=== PATIENT | male | born 1970 | race Caucasian/White ===

== ENCOUNTER 2020-10-05 18:05 | Emergency (ER) | payer SELFPAY ==
[~2020-10-05] VITALS: Ht 177 cm; Wt 75.0 kg
[~2020-10-05 18:05] MED LIST: LORA10CA PO
[2020-10-05] MEDS ORDERED: LACTATED RINGERS 1,000 ML IV STA (18:52)
[2020-10-05] MEDS ORDERED: ONDANSETRON 4 MG/2 ML (SDV) Z0FRAN IVP ONE (19:00)
[2020-10-05] MEDS ORDERED: ACETAMINOPHEN 500 MG TAB (TYLENOL) PO ONE (19:00)
[2020-10-05] MEDS ORDERED: LACTATED RINGERS 1,000 ML IV ONE (19:00)
--- NOTE | 2020-10-05 19:00 | ED Cough/URI ---
General Chief Complaint: Cough/Cold/Flu Symptoms Stated Complaint: DIARRHEA,N/V,CALDERON,FEVER,COUGH,SOB Nursing Triage Note: PT PRESENTS TO ED C/O EIGHT DAYS OF COUGH, NVD, FATIGUE AND FEVER. PT STATES SEVERAL CLOSE FRIENDS HAVE TESTED POSITIVE FOR COVID Source: patient Exam Limitations: no limitations History of Present Illness Date Seen by Provider: Oct 05, 2020 Time Seen by Provider: 18:45 Initial Comments Patient presents ER by private conveyance from home chief complaint of last 3 4 days nausea vomiting diarrhea dehydration poor appetite poor fluid intake and 8 days of body aches, cough nonproductive, subjective fevers and chills. Has been using NyQuil today. No NSAIDs. He says he thought he was about to turn the corner today but just has felt worse. He has no significant medical history. He does not smoke. He denies history of lung disease such as asthma or COPD. Allergies and Home Medications Allergies Coded Allergies: No Known Drug Allergies (Unverified , 09/05/13) Home Medications Ondansetron 4 Mg Tab.rapdis, 4 MG PO Q6H PRN for NAUSEA/VOMITING Prescribed by: PASCUAL CHRISTIAN on 10/05/202044 Patient Home Medication List Home Medication List Reviewed: Yes Review of Systems Review of Systems Constitutional: fever, malaise, weakness EENTM: No ear discharge, No ear pain Respiratory: cough; No phlegm; short of breath Cardiovascular: No edema, No palpitations Gastrointestinal: No abdominal pain, No constipation, No diarrhea; nausea; No vomiting Genitourinary: No discharge, No dysuria Musculoskeletal: No back pain, No joint pain All Other Systems Reviewed Negative Unless Noted: Yes Past Ggijdbr-Lznsjl-Qdkktp Hx Patient Social History Tobacco Use?: No Substance use?: No Alcohol Use?: No Immunizations Up To Date Tetanus Booster (TDap): More than 5yrs Past Medical History Reproductive Disorders: No Sexually Transmitted Disease: No HIV/AIDS: No Hearing Impairment: Denies Adverse Reaction/Blood Tranf: No Family Medical History Family history: Alzheimer's disease 19 MOTHER (grandfather) Family history: Glaucoma 19 MOTHER (grandfather) History of - respiratory disease 19 MOTHER (copd) Hypercholesterolemia 19 MOTHER No Family History of: Abdominal aortic aneurysm [place]'s disease Alcoholism Aphasia Cancer Cancer of colon Family history: Asthma Physical Exam Vital Signs - First Documented 10/05/20 10/05/20 18:41 19:17 Temp 39.0 Pulse 110 Resp 22 B/P (MAP) 136/52 (80) Pulse Ox 94 O2 Delivery Room Air O2 Flow Rate 2.00 Capillary Refill : Less Than 3 Seconds Height: 6'0" Weight: 175lbs. 4.0oz. [id number]; 23.00 BMI Method:Stated General Appearance: WD/WN, moderate distress Eyes: Bilateral Eye Normal Inspection, Bilateral Eye PERRL, Bilateral Eye EOMI HEENT: PERRL/EOMI, normal ENT inspection, TMs normal; No pharynx normal (dry) Neck: full range of motion, normal inspection Respiratory: lungs clear, normal breath sounds, no respiratory distress, no accessory muscle use Cardiovascular: normal peripheral pulses, regular rate, rhythm Extremities: normal inspection, normal capillary refill Neurologic/Psychiatric: alert, oriented x 3 Skin: normal color, warm/dry Progress/Results/Core Measures Suspected Sepsis SIRS Temperature: Pulse: 110 Respiratory Rate: 22 Laboratory Tests 10/05/20 18:55: White Blood Count 6.1 Blood Pressure 136 /52 Mean: 80 Laboratory Tests 10/05/20 18:55: Creatinine 0.94, Platelet Count 190, Total Bilirubin 0.7 Results/Orders Lab Results Laboratory Tests Test 10/05/20 18:55 Range/Units White Blood Count 6.1 4.3-11.0 10^3/uL Red Blood Count 4.93 4.30-5.52 10^6/uL Hemoglobin 15.3 13.3-17.7 g/dL Hematocrit 44 40-54 % Mean Corpuscular Volume 89 80-99 fL Mean Corpuscular Hemoglobin 31 25-34 pg Mean Corpuscular Hemoglobin Concent 35 32-36 g/dL Red Cell Distribution Width 12.5 10.0-14.5 % Platelet Count 190 130-400 10^3/uL Mean Platelet Volume 9.4 9.0-12.2 fL Immature Granulocyte % (Auto) 1 % Neutrophils (%) (Auto) 84 H 42-75 % Lymphocytes (%) (Auto) 12 12-44 % Monocytes (%) (Auto) 3 0-12 % Eosinophils (%) (Auto) 0 0-10 % Basophils (%) (Auto) 0 0-10 % Neutrophils # (Auto) 5.2 1.8-7.8 10^3/uL Lymphocytes # (Auto) 0.7 L 1.0-4.0 10^3/uL Monocytes # (Auto) 0.2 0.0-1.0 10^3/uL Eosinophils # (Auto) 0.0 0.0-0.3 10^3/uL Basophils # (Auto) 0.0 0.0-0.1 10^3/uL Immature Granulocyte # (Auto) 0.0 0.0-0.1 10^3/uL Sodium Level 138 135-145 MMOL/L Potassium Level 3.4 L 3.6-5.0 MMOL/L Chloride Level 101 98-107 MMOL/L Carbon Dioxide Level 24 21-32 MMOL/L Anion Gap 13 5-14 MMOL/L Blood Urea Nitrogen 13 7-18 MG/DL Creatinine 0.94 0.60-1.30 MG/DL Estimat Glomerular Filtration Rate > 60 BUN/Creatinine Ratio 14 Glucose Level 106 H 70-105 MG/DL Calcium Level 8.5 8.5-10.1 MG/DL Corrected Calcium 8.7 8.5-10.1 MG/DL Magnesium Level 1.8 1.6-2.4 MG/DL Total Bilirubin 0.7 0.1-1.0 MG/DL Aspartate Amino Transf (AST/SGOT) 44 H 5-34 U/L Alanine Aminotransferase (ALT/SGPT) 37 0-55 U/L Alkaline Phosphatase 60 40-136 U/L C-Reactive Protein High Sensitivity 8.45 H 0.00-0.50 MG/DL Total Protein 6.8 6.4-8.2 GM/DL Albumin 3.8 3.2-4.5 GM/DL Procalcitonin 0.11 H <0.10 NG/ML Influenza Type A (RT-PCR) Not Detected Not Detecte Influenza Type B (RT-PCR) Not Detected Not Detecte SARS-CoV-2 RNA (RT-PCR) Detected H Not Detecte My Orders Orders - PASCUAL CHRISTIAN Ed Iv/Invasive Line Start (10/05/20 18:52) Lactated Ringers (Lr 1000 Ml Iv Solution (10/05/20 19:00) Lactated Ringers (Lr 1000 Ml Iv Solution (10/05/20 18:52) Cbc With Automated Diff (10/05/20 18:52) Comprehensive Metabolic Panel (10/05/20 18:52) Hs C Reactive Protein (10/05/20 18:52) Procalcitonin (Pct) (10/05/20 18:52) Magnesium (10/05/20 18:52) Chest 1 View, Ap/Pa Only (10/05/20 18:52) Ondansetron Injection (Zofran Injectio (10/05/20 19:00) Acetaminophen Tablet (Tylenol Tablet) (10/05/20 19:00) Covid 19 Inhouse Test (10/05/20 18:52) Influenza A And B By Pcr (10/05/20 18:52) Rx-Ondansetron Po (Rx-Zofran Po) (10/05/20 20:46) Medications Given in ED Current Medications Medications Dose Ordered Sig/Ed Route Start Time Stop Time Status Last Admin Dose Admin Acetaminophen 1,000 mg ONCE ONCE PO 10/05/20 19:00 10/05/20 19:01 DC 10/05/20 19:08 1,000 MG Lactated Ringer's 1,000 ml @ 0 mls/hr Q0M ONCE IV 10/05/20 19:00 10/05/20 19:01 DC 10/05/20 19:08 1,000 MLS/HR Ondansetron HCl 8 mg ONCE ONCE IVP 10/05/20 19:00 10/05/20 19:01 DC 10/05/20 19:08 8 MG Vital Signs/I&O 10/05/20 10/05/20 10/05/20 10/05/20 18:41 18:45 19:08 19:17 Temp 39.0 39.0 Pulse 110 Resp 22 B/P (MAP) 136/52 (80) Pulse Ox 94 95 O2 Delivery Room Air Room Air Nasal Cannula O2 Flow Rate 2.00 10/05/20 20:59 Temp 38.6 Pulse 87 Resp 22 B/P (MAP) 107/66 (80) Pulse Ox 97 O2 Delivery Room Air Capillary Refill : Less Than 3 Seconds Blood Pressure Mean: 80 Diagnostic Imaging Diagonstic Imaging: Xray Plain Films/CT/US/NM/MRI: chest Comments [facility]. [place], [place] NAME: JAMEYNURYS HERCHERRY [facility] REC#: [id number] PT STATUS: REG ER : 1970 PHYSICIAN: PASCUAL CHRISTIAN MD ADMIT DATE: 10/05/20/ER Signed Date of Exam:10/05/20 CHEST 1 VIEW, AP/PA ONLY EXAMINATION: Chest 1 view. HISTORY: Cough. Shortness of breath. COMPARISON: None available. FINDINGS: Patchy opacities are seen throughout the lungs, greatest in the mid and lower left lung. No pleural effusion or pneumothorax. The cardiac silhouette is unremarkable. No acute osseous abnormalities. IMPRESSION: Patchy opacities throughout the lungs with the greatest involvement in the left mid and lower lung. Findings are concerning for multifocal pneumonia. Dictated by: Dictated on workstation # [id number] Dict: 10/05/201953 Trans: 10/05/201957 [facility] [id number] Interpreted by: MAYO GARIBAY DO Electronically signed by: MAYO GARIBAY DO 10/05/201957 Reviewed: Reviewed by Me Departure Impression Primary Impression: COVID-19 Additional Impression: Dehydration Disposition: 01 HOME, SELF-CARE Condition: Stable Departure-Patient Inst. Decision time for Depature: 20:30 Referrals: NO,LOCAL PHYSICIAN (PCP/Family) Primary Care Physician Patient Instructions: COVID-19 (DC) Add. Discharge Instructions: Zofran 1 tablet under the tongue every 6 hours as necessary for nausea and/or vomiting. Imodium 2 tablets followed by 1 tablet every 4 hours afterwards that you are having loose, watery diarrhea. Tylenol and ibuprofen as necessary for fever chills headache body aches. Drink lots of fluids. Sports drinks are encouraged. Return to the ER promptly if you are having intractable nausea vomiting, diarrhea or unable to keep up with your fluid intake. Return to the ER promptly if you are experiencing oxygen saturations consistently below 90% while at rest. All discharge instructions reviewed with patient and/or family. Voiced understanding. Scripts Benzonatate (Tessalon Perle) 100 Mg Capsule 100 MG PO Q6H PRN for COUGH, #30 CAP 0 Refills Prov: PASCUAL CHRISTIAN 10/06/20 Ondansetron (Ondansetron Odt) 4 Mg Tab.rapdis 4 MG PO Q6H PRN for NAUSEA/VOMITING, #15 TAB 0 Refills Prov: PASCUAL CHRISTAIN 10/05/20 Work/School Note: Work Release Form Date Seen in the Emergency Department: Oct 05, 2020 Return to Work: Oct 08, 2020 Restrictions: Need Release from Doctor Other Restrictions Listed Below: Must be symptoms free for 24 hours prior to returning to work. PASCUAL CHRISTIAN Oct 05, 2020 19:00
[2020-10-05 19:06] LABS: BASOPHILS % (AUTO) 0 % (0-10); EOSINOPHILS % (AUTO) 0 % (0-10); HEMATOCRIT 44 % (40-54); HEMOGLOBIN 15.3 g/dL (13.3-17.7); LYMPHOCYTES # (AUTO) 0.7 10^3/uL (1.0-4.0); LYMPHOCYTES % (AUTO) 12 % (12-44); MEAN CORPUSCULAR HEMOGLOBIN 31 pg (25-34); MEAN CORPUSCULAR HGB CONC 35 g/dL (32-36); MEAN CORPUSCULAR VOLUME 89 fL (80-99); MEAN PLATELET VOLUME 9.4 fL (9.0-12.2); MONOCYTES # (AUTO) 0.2 10^3/uL (0.0-1.0); MONOCYTES % (AUTO) 3 % (0-12); NEUTROPHILS # (AUTO) 5.2 10^3/uL (1.8-7.8); NEUTROPHILS % (AUTO) 84 % (42-75); PLATELET COUNT 190 10^3/uL (130-400); WHITE BLOOD COUNT 6.1 10^3/uL (4.3-11.0)
[2020-10-05 19:18] LABS: ALBUMIN 3.8 GM/DL (3.2-4.5); CHLORIDE 101 MMOL/L (98-107); POTASSIUM 3.4 MMOL/L (3.6-5.0); SODIUM 138 MMOL/L (135-145)
[2020-10-05 19:20] LABS: CALCIUM 8.5 MG/DL (8.5-10.1)
[2020-10-05 19:21] LABS: GLUCOSE 106 MG/DL (70-105); TOTAL PROTEIN 6.8 GM/DL (6.4-8.2)
[2020-10-05 19:22] LABS: CARBON DIOXIDE 24 MMOL/L (21-32)
[2020-10-05 19:23] LABS: BILIRUBIN,TOTAL 0.7 MG/DL (0.1-1.0)
[2020-10-05 19:24] LABS: ALKALINE PHOSPHATASE 60 U/L (40-136)
[2020-10-05 19:25] LABS: CREATININE SERUM 0.94 MG/DL (0.60-1.30); GFR ESTIMATED > 60
[2020-10-05 19:26] LABS: BUN/CREATININE RATIO 14
[2020-10-05 19:27] LABS: ALANINE AMINOTRANSFERASE 37 U/L (0-55); MAGNESIUM 1.8 MG/DL (1.6-2.4)
--- NOTE | 2020-10-05 19:57 | Diagnostic Imaging Report ---
EXAMINATION: Chest 1 view. HISTORY: Cough. Shortness of breath. COMPARISON: None available. FINDINGS: Patchy opacities are seen throughout the lungs, greatest in the mid and lower left lung. No pleural effusion or pneumothorax. The cardiac silhouette is unremarkable. No acute osseous abnormalities. IMPRESSION: Patchy opacities throughout the lungs with the greatest involvement in the left mid and lower lung. Findings are concerning for multifocal pneumonia. Dictated by: Dictated on workstation # [id number]
[2020-10-05] MEDS ORDERED: ONDA4TAB11 PO (20:45)
[2020-10-05] MEDS ORDERED: RX-ONDANSETRON 4 MG ODT (ZOFRAN) PPK #4 PO STA (20:46)
[2020-10-05 20:59] VITALS: BP 107/66
[2020-10-06] MEDS ORDERED: BENZ-13 PO (04:43)
== END 2020-10-05 20:59 | disposition home or self-care (01) ==
LOC: EDUNIT# 18:05 → ER 18:07
DX: U07.1 COVID-19 (principal); E86.0 Dehydration
CPT/HCPCS: 36415; 71045; 80053; 83735; 84145; 85025; 86141; 87636